=== PATIENT | female | born 1995 | race Caucasian/White ===

== ENCOUNTER 2017-01-30 16:02 | Emergency (ER) | payer OTHER ==
[~2017-01-30] VITALS: Ht 154.9 cm; Wt 59.6 kg
[2017-01-30 16:03] VITALS: BP 116/79; PULSE 76; TEMP 36.9; O2SAT 100; Ht 154.9 cm; Wt 59.6 kg
[2017-01-30] MEDS ORDERED: IBUP-1050 PO (16:29)
[2017-01-30] MEDS ORDERED: BCPILLS PO (16:29)
--- NOTE | 2017-01-30 16:31 | DIAGNOSTIC IMAGING REPORT ---
LEFT ANKLE MIN 3 VIEWS ROUTINE HISTORY: 21 years-old Female r/o fx left ankle, trama COMPARISON: None available TECHNIQUE: 3 views of the left ankle FINDINGS: Ankle mortise is well maintained and anatomically positioned. Talar dome is smooth without osteochondral defect. No acute fracture, dislocation or significant degenerative changes. There is mild soft tissue swelling about the ankle, greatest laterally. No large joint effusion or radiopaque foreign body. IMPRESSION: Mild soft tissue swelling without acute fracture or dislocation. The above report was generated using voice recognition software. It may contain grammatical, syntax or spelling errors. Electronically signed by: Raymond Galo M.D. 01/30/2017 4:30 PM Dictated Date/Time: 01/30/2017 4:27 PM
--- NOTE | 2017-02-01 11:14 | EMERGENCY ROOM VISIT NOTE ---
ED Visit Note First contact with patient: 16:06 Chief Complaint: I think I sprained my left ankle. History of Present Illness: Ms. Rangel is a 21-year-old female who ambulates into the ED complaining of left lateral ankle pain. Historically patient reports she had a ligamentous injury to her ankle when she was in high school. She reported it was a significant sprain but when she was followed up in orthopedics surgery was not recommended. Patient reports last evening she slipped while walking down steps and twisted her ankle. From her description of the injury appears to be an inversion injury. She reports since the fall she has been having worsening pain and swelling over the lateral aspect of the left ankle. She describes her pain as sharp and throbbing. She rates her discomfort 5/10. Her pain is nonradiating. Her pain worsens with plantar flexion, weightbearing, ambulation and palpation. She has not identified any alleviating factors related to the pain. She has not taken any medications for pain prior to arrival at the hospital. She denies any associated symptoms including hip pain, knee pain, foot pain, leg weakness/numbness/tingling. Review of Systems: As noted above in history of present illness. Past Medical History: As previously noted, asthma, GERD, migraine headaches. Current Medications: control. Allergies to Medications: Patient denies. Social History: Patient is currently employed; she feels safe in her home environment; she denies tobacco and alcohol use. Physical Examination: Vital Signs: Date Time Temp Pulse Resp B/P (MAP) Pulse Ox O2 Delivery O2 Flow Rate FiO2 01/30/17 16:03 36.9 76 18 116/79 100 GENERAL: 21-year-old female in mild distress due to pain, nontoxic-appearing, afebrile and hemodynamically stable. NEUROLOGICAL: Awake, alert and oriented to person, place and time. Answering questions appropriately and following commands. Normal gait. SKIN: Warm, dry and pink. No soft tissue trauma noted. LEFT LOWER EXTREMITY: No gross bony deformity. No tenderness in the hip, knee, lower leg or foot. Moderate tenderness over the lateral malleolus over the anterior and posterior talofibular ligaments with moderate swelling but no ecchymosis. No palpable bony deformity. No perceived ligamentous laxity. Distal pulses, sensations and capillary refill intact. ED Course: Patient is assessed as noted above. Patient's medication list was reviewed. Patient was offered pain medication and refused; she was given ice for pain and comfort. Left Ankle X-Rays: Were read by myself and the radiologist showing no acute fractures or dislocations. Patient was placed in a gel splint and on nonweightbearing crutches. Patient was educated about today's findings and instructed on her treatment plan ; she verbalizes understanding and agreement with this plan. Clinical Impression: Left ankle sprain. Disposition: Patient discharged home in stable condition; prior to departure she was reassessed and subjectively reported she was feeling slightly worse and rated her discomfort 6/10. Plan: Comfort measures including rest, ice, elevation, alternating ibuprofen and acetaminophen and gel splint and crutches were discussed with the patient. Patient was encouraged to follow-up with orthopedics if no better in 6-7 days. Patient was encouraged return the ED for worsening/uncontrolled pain, uncontrolled swelling, foot weakness/numbness/tingling or any new/concerning symptoms.
== END 2017-01-30 16:55 | disposition home or self-care (01) ==
LOC: C.EDB 16:04 → C.EDD 16:55
DX: S93.402A Sprain of unspecified ligament of left ankle, initial encounter (principal); X50.0XXA Overexertion from strenuous movement or load, initial encounter; J45.909 Unspecified asthma, uncomplicated; K21.9 Gastro-esophageal reflux disease without esophagitis; Z79.3 Long term (current) use of hormonal contraceptives

== ENCOUNTER 2017-02-03 09:26 | Emergency (ER) | payer OTHER ==
[~2017-02-03] VITALS: Ht 154.9 cm; Wt 59.8 kg
[~2017-02-03 09:26] MED LIST: BCPILLS PO; IBUP-1050 PO
[2017-02-03 09:33] VITALS: TEMP 36.6; Ht 154.9 cm; Wt 59.8 kg
--- NOTE | 2017-02-03 10:09 | EMERGENCY ROOM VISIT NOTE ---
History Report prepared by Ramona: July Zimmer Under the Supervision of: Dr. Elias Hernandez M.D. First contact with patient: 09:41 Chief Complaint: URINARY SYMPTOMS Stated Complaint: URINARY FREQUENCY, BURNING, UNCOMFORTABLE History of Present Illness The patient is a 21 year old female with no significant past medical history who presents to the ED with a cc of urinary symptoms beginning 4 days ago. She has had discomfort with urinating but denies any burning. She is also urinating more frequently than usual. She rates her discomfort as a 6/10 in severity. The patient has had a UTI in the past and states that she had burning with urination at that time and these symptoms feel different. She is concerned for STDs but denies any recent unprotected sex or new sexual partners. Negative fevers, chills, sore throat, cough, congestion, back pain, nausea, vomiting, abdominal pain, and abnormal vaginal discharge. She does take an OCP. LNMP was 3 weeks ago. Her vaccinations are up to date. Source of History: patient Onset: 4 days ago Position: other (urinary) Symptom Intensity: 6/10 Quality: other (discomfort) Timing: constant Associated Symptoms: No fevers, No chills, No sorethroat, No cough, No vomiting, No abdominal pain, No back pain Note: Pt denies abnormal vaginal discharge. Review of Systems See HPI for pertinent positives and negatives. A total of ten systems were reviewed and were otherwise negative. Past Medical & Surgical Medical Problems: (1) GERD (gastroesophageal reflux disease) (2) Kidney stones (3) Migraine Surgical Problems: (1) No history of previous surgery Family History FH: cancer FH: diabetes mellitus FH: heart disease FH: hypertension FH: kidney disease FH: seizures Social History Smoking Status: Never Smoker Alcohol Use: none Drug Use: none Marital Status: single Housing Status: lives with friends Occupation Status: employed Current/Historical Medications Scheduled Control Pills ( Control Pills), 1 TAB PO DAILY Cephalexin Monohydrate (Keflex), 500 MG PO BID Ondasetron Odt (Zofran Odt), 4 MG SL Q6H Scheduled PRN Ibuprofen (Advil), 400 MG PO Q6 PRN for Pain Allergies Coded Allergies: No Known Allergies (Unverified , 02/03/17) Physical Exam Vital Signs Date Time Temp Pulse Resp B/P (MAP) Pulse Ox O2 Delivery O2 Flow Rate FiO2 02/03/17 11:42 75 20 104/65 99 Room Air 02/03/17 09:33 36.6 88 16 107/70 94 Room Air Physical Exam GENERAL: Awake, alert, well-appearing, NAD HENT: Normocephalic, atraumatic. EYES: Normal conjunctiva. Sclera non-icteric. NECK: Supple. No nuchal rigidity. FROM. RESPIRATORY: CTAB, no rhonchi, wheezing, crackles CARDIAC: RRR, no MRG ABDOMEN: Soft, NTND, BS+ MSK: No chest wall TTP, no LE edema NEURO: GCS 15, CN 2-12 intact, moves all 4s on command SKIN: No rash or jaundice noted. Medical Decision & Procedures Laboratory Results Test 02/03/17 09:50 Urine Color YELLOW Urine Appearance CLEAR (CLEAR) Urine pH 5.0 (4.5-7.5) Urine Specific [place] 1.025 (1.000-1.030) Urine Protein NEG (NEG) Urine Glucose (UA) NEG (NEG) Urine Ketones NEG (NEG) Urine Occult Blood 2+ (NEG) Urine Nitrite NEG (NEG) Urine Bilirubin NEG (NEG) Urine Urobilinogen NEG (NEG) Urine Leukocyte Esterase MODERATE (NEG) Urine WBC (Auto) >30 /hpf (0-5) Urine RBC (Auto) 10-30 /hpf (0-4) Urine Hyaline Casts (Auto) 1-5 /lpf (0-5) Urine Epithelial Cells (Auto) 5-10 /lpf (0-5) Urine Bacteria (Auto) 2+ (NEG) Urine Test NEG (NEG) Laboratory results reviewed by me. Medications Administered Medications (Trade) Dose Ordered Sig/Isabel Route Start Time Stop Time Status Last Admin Dose Admin Ceftriaxone Sodium (Rocephin Im) 1,000 mg NOW STAT IM 02/03/17 11:03 02/03/17 11:04 DC 02/03/17 11:35 1,000 MG ED Course 0941: The patient was evaluated in room A11B. A complete history and physical exam was performed. 1103: Rocephin 1000 mg IM 1142: I reassessed the patient at this time. She is feeling better and resting comfortably. I discussed the results and treatment plan with the patient. I answered all pertaining questions that she had. She expressed understanding and verbalized agreement. The patient will be discharged home. Medical Decision Differential diagnoses includes UTI, STD, kidney stone. The patient is a 21 year old female with no significant past medical history who presents to the ED with a cc of urinary symptoms beginning 4 days ago. Patient was seen and evaluated at the bedside. Patient is complaining of some mild dysuria but no other symptoms. Patient did have a UA consistent with cystitis and hematuria. She has had h/o of prior UTI w/ similar symptoms although usually more pronounced than currently. Denies fevers or chills. Patient had no abdominal pain and had no nausea or vomiting. Patient also did not have any high risk factors concerning for possible STDs. Patient denied any recent change in sexual partners, unprotected sexual intercourse, or drug use. Patient was told that if she would like additional testing may be more appropriate for a clinic or PCP so that if she requires treatment she can return there for appropriate treatment. Patient was given strict follow-up for discharge, return precautions. Patient agreed with plan of care patient safely discharged home. Medication Reconcilliation Current Medication List: was personally reviewed by me Blood Pressure Screening Patient's blood pressure: Normal blood pressure Impression Primary Impression: Cystitis Scribe Attestation The scribe's documentation has been prepared under my direction and personally reviewed by me in its entirety. I confirm that the note above accurately reflects all work, treatment, procedures, and medical decision making performed by me. Departure Information Dispostion Home / Self-Care Prescriptions Ondasetron Odt (ZOFRAN ODT) 4 Mg Tab 4 MG SL Q6H for Nausea, #6 TAB Prov: Elias Hernandez M.D. 02/03/17 Cephalexin Monohydrate (Keflex) 500 Mg Cap 500 MG PO BID for urinary tract infection for 7 Days, #14 CAP Prov: Elias Hernandez M.D. 02/03/17 Referrals No Doctor, Assigned (PCP) Forms HOME CARE DOCUMENTATION FORM, IMPORTANT VISIT INFORMATION Patient Instructions Cystitis Interstitial, My [facility] Additional Instructions Please return to the emergency department if you have worsening or recurrent symptoms not amenable to at-home treatment. Please call for a follow-up appointment with her primary care physician. Please take your medications as prescribed. If you have other concerns and/or complaints please feel free to also call your primary care physician's office or return the ED for further evaluation, management, and treatment. School Instructions Return To School: 1 day
[2017-02-03 10:50] LABS: URINE APPEARANCE CLEAR (CLEAR); URINE BILIRUBIN NEG (NEG); URINE COLOR YELLOW; URINE NITRITE NEG (NEG); URINE SPECIFIC GRAVITY 1.025 (1.000-1.030); UROBILINOGEN NEG (NEG); ZZUR CULT IF INDIC CLEAN CATCH YES
[2017-02-03 11:02] LABS: MANUAL MICROSCOPIC REQUIRED? NO; REVIEW REQ? NO
[2017-02-03] MEDS ORDERED: CEFTRIAXONE SOD 350MG/ML 1 GM VIAL IM STA (11:03)
[2017-02-03] MEDS ORDERED: CEPH500C PO (11:33)
[2017-02-03] MEDS ORDERED: ONDA4TAB10 SL (11:33)
[2017-02-03 11:42] VITALS: BP 104/65; PULSE 75; O2SAT 99
--- NOTE | 2017-02-05 14:03 | Pharmacy Progress Note ---
ED Pharmacist Culture FollowUp Date of Service: Feb 05, 2017. Patient was sent home with a prescription for cephalexin 500mg BID X 7 days, which should cover the E. coli growing from the patient's urine culture.
== END 2017-02-03 11:54 | disposition home or self-care (01) ==
LOC: C.EDB 09:27 → C.EDA 11:54
DX: N30.80 Other cystitis without hematuria (principal); K21.9 Gastro-esophageal reflux disease without esophagitis; Z87.440 Personal history of urinary (tract) infections; Z80.9 Family history of malignant neoplasm, unspecified; Z83.3 Family history of diabetes mellitus; Z82.49 Family history of ischemic heart disease and other diseases of the circulatory system; Z84.1 Family history of disorders of kidney and ureter; Z82.0 Family history of epilepsy and other diseases of the nervous system

== ENCOUNTER 2017-02-19 10:42 | Emergency (ER) | payer OTHER ==
[~2017-02-19] VITALS: Ht 154.9 cm; Wt 59.2 kg
[~2017-02-19 10:42] MED LIST changes: +ONDA4TAB10 SL
[2017-02-19 10:52] VITALS: TEMP 36.7; Ht 154.9 cm; Wt 59.2 kg
--- NOTE | 2017-02-19 11:20 | EMERGENCY ROOM VISIT NOTE ---
History Report prepared by Ramona: Milka Ventura Under the Supervision of: Dr. Mc Hopkins M.D. First contact with patient: 11:14 Chief Complaint: CONGESTION Stated Complaint: RUNNY/STUFFY NOSE, COUGH, CHEST AND THROAT PAIN Nursing Triage Summary: Pt states she's been sick for a a couple weeks, started as a cold C/O Runny nose Cough, productive, green Sore throat Chest pain when she coughs. Hot and cold. History of Present Illness The patient is a 21 year old female who presents to the Emergency Room with complaints of a constant sore throat beginning 2 weeks ago. The patient reports that she has been short of breath, had a runny nose, and has had headaches. The patient also reports having a productive cough and the chills. She states that her roommate has been sick but not to this degree. The patient reports no other medical problems. Source of History: patient Onset: 2 weeks ago Position: throat Quality: other (sore) Timing: constant Associated Symptoms: + chills, + headache, + cough (productive), + SOB Review of Systems See HPI for pertinent positives & negatives. A total of 10 systems reviewed and were otherwise negative. Past Medical & Surgical Medical Problems: (1) GERD (gastroesophageal reflux disease) (2) Kidney stones (3) Migraine Surgical Problems: (1) No history of previous surgery Family History FH: cancer FH: diabetes mellitus FH: heart disease FH: hypertension FH: kidney disease FH: seizures Social History Smoking Status: Never Smoker Alcohol Use: none Drug Use: none Marital Status: single Housing Status: lives with friends Occupation Status: employed Current/Historical Medications Scheduled Albuterol Hfa (Ventolin Hfa), 2-4 PUFFS INH Q6H Amoxicillin & Pot Clavulanate (Augmentin 875-125 mg), 875 MG PO BID Control Pills ( Control Pills), 1 TAB PO DAILY Allergies Coded Allergies: No Known Allergies (Unverified , 02/03/17) Physical Exam Vital Signs Date Time Temp Pulse Resp B/P (MAP) Pulse Ox O2 Delivery O2 Flow Rate FiO2 02/19/17 11:35 80 18 110/71 99 Room Air 02/19/17 10:52 36.7 90 16 117/78 98 Room Air 02/19/17 10:52 98 Room Air Physical Exam GENERAL: Patient is in no acute distress. HEENT: No acute trauma, normocephalic atraumatic, mucous membranes moist, moderate nasal congestion, no scleral icterus. No throat erythema or exudate. NECK: No stridor, no adenopathy, no meningismus, trachea is midline. LUNGS: Clear to auscultation bilaterally, no wheeze, no rhonchi, breath sounds equal. HEART: Without murmurs gallops or rubs, regular rate and rhythm. ABDOMEN: Soft, nontender, bowel sounds positive, no hernias, no peritonitis. EXTREMITIES: No cyanosis or edema, full range of motion of all the joints without pain or difficulty, no signs for acute trauma. NEUROLOGIC: Oriented x 3, no acute motor or sensory deficits, no focal weakness. SKIN: No rash, no jaundice, no diaphoresis. Medical Decision & Procedures Medications Administered Medications (Trade) Dose Ordered Sig/Isabel Route Start Time Stop Time Status Last Admin Dose Admin Albuterol (Ventolin Hfa Inhaler) 3 puffs NOW ONCE INH 02/19/17 11:30 02/19/17 11:31 DC 02/19/17 11:34 3 PUFFS Amoxicillin/ Clavulanate Potassium (Augmentin Tab) 875 mg ONE ONCE PO 02/19/17 11:30 02/19/17 11:31 DC 02/19/17 11:34 875 MG ED Course 1110: The patient was evaluated in room B9. A complete history and physical exam was performed. 1130: Ordered Augmentin Tab 875 mg PO, Albuterol 3 puffs INH. 1145: Reevaluated the patient. Discussed results and discharge instructions: She verbalized understanding and agreement. The patient is ready for discharge. Medical Decision The patient is a 21 year old female who presents to the ED with complaints of sore throat. Differential diagnoses considered include URI, pharyngitis, sinusitis, bronchitis, and pneumonia. The patient presents with 2 weeks of stuffy nose, cough and congestion. On exam , there is no pharyngitis. She was not toxic or febrile. Her lungs were clear without wheezing. The patient has a sinusitis, possibly an early bronchitis. I do think she requires antibiotic therapy. She was given oral Augmentin. I will prescribe albuterol for bronchospasm. A dose of albuterol was given here. The patient can return if not improving or if things are worsening. Medication Reconcilliation Current Medication List: was personally reviewed by me Blood Pressure Screening Patient's blood pressure: Normal blood pressure Impression Primary Impression: Sinusitis Additional Impression: Cough Scribe Attestation The scribe's documentation has been prepared under my direction and personally reviewed by me in its entirety. I confirm that the note above accurately reflects all work, treatment, procedures, and medical decision making performed by me. Departure Information Dispostion Home / Self-Care Prescriptions Albuterol Hfa (VENTOLIN HFA) 200 Puffs/50354 Mcg Aers 2-4 PUFFS INH Q6H, #1 INHALER Prov: Mc Hopkins M.D. 02/19/17 Amoxicillin & Pot Clavulanate (Augmentin 875-125 mg) 1 Tab Tab 875 MG PO BID for 10 Days, #20 TAB Prov: Mc Hopkins M.D. 02/19/17 Referrals No Doctor, Assigned (PCP) Forms HOME CARE DOCUMENTATION FORM, IMPORTANT VISIT INFORMATION Patient Instructions My [facility] Additional Instructions albuterol 2-4 puffs every 6 hours for the cough fluids rest augmenting 2x per day for 10 days return if worsening lungs were clear today Problem Qualifiers
[2017-02-19] MEDS ORDERED: AMOXICILLIN/CLAVULANATE TAB 875 MG TAB PO ONE (11:30)
[2017-02-19] MEDS ORDERED: ALBUTEROL HFA 8 GM INHALER INH ONE (11:30)
[2017-02-19 11:35] VITALS: BP 110/71; PULSE 80; O2SAT 99
[2017-02-19] MEDS ORDERED: AMOX875T PO (11:48)
[2017-02-19] MEDS ORDERED: VNTHFA/IN INH (11:48)
== END 2017-02-19 11:56 | disposition home or self-care (01) ==
LOC: C.EDB 10:44
DX: J32.9 Chronic sinusitis, unspecified (principal); R05 Cough; Z83.3 Family history of diabetes mellitus; Z82.49 Family history of ischemic heart disease and other diseases of the circulatory system; Z82.0 Family history of epilepsy and other diseases of the nervous system

== ENCOUNTER 2017-05-03 09:04 | Emergency (ER) | payer OTHER ==
[~2017-05-03] VITALS: Ht 154.9 cm; Wt 60.1 kg
[~2017-05-03 09:04] MED LIST changes: -IBUP-1050 PO; -ONDA4TAB10 SL; +VNTHFA/IN INH
[2017-05-03 09:10] VITALS: BP 118/79; PULSE 65; TEMP 36.9; O2SAT 99; Ht 154.9 cm; Wt 60.1 kg
[2017-05-03] MEDS ORDERED: CEPHALEXIN MONOHYDRATE 250 MG CAP PO STA (09:14)
[2017-05-03] MEDS ORDERED: CEPHALEXIN 500MG HOME PACK 1 EA BTL PO ONE (09:15)
--- NOTE | 2017-05-03 09:18 | EMERGENCY ROOM VISIT NOTE ---
History Report prepared by Ramona: Ernesto Clements Under the Supervision of: Dr. Samson Goode M.D. First contact with patient: 09:10 Chief Complaint: URINARY SYMPTOMS Stated Complaint: BURNING WHEN URINATING History of Present Illness The patient is a 21 year old female who presents to the Emergency Room with complaints of persistent urinary symptoms that started this morning. She says that she has a history of UTI's, and feels like she is having one again. The patient states that she has burning with urination and increased urinary frequency. She denies any fevers or cold symptoms. She is a [employer] student. Source of History: patient Onset: This morning Position: other (global - urinary symptoms) Quality: other (feels like UTI - urinary burning, increased frequency) Timing: other (persistent) Associated Symptoms: No fevers Note: Associated symptoms: Denies cold symptoms. Review of Systems See HPI for pertinent positives & negatives. A total of 10 systems reviewed and were otherwise negative. Past Medical & Surgical Medical Problems: (1) GERD (gastroesophageal reflux disease) (2) Kidney stones (3) Migraine Surgical Problems: (1) No history of previous surgery Family History FH: cancer FH: diabetes mellitus FH: heart disease FH: hypertension FH: kidney disease FH: seizures Social History Smoking Status: Never Smoker Alcohol Use: none Drug Use: none Marital Status: single Housing Status: lives with friends Occupation Status: [employer] student Current/Historical Medications Scheduled Albuterol Hfa (Ventolin Hfa), 2-4 PUFFS INH Q6H Control Pills ( Control Pills), 1 TAB PO DAILY Cephalexin Monohydrate (Keflex), 1 CAP PO BID Allergies Coded Allergies: No Known Allergies (Unverified , 05/03/17) Physical Exam Vital Signs Date Time Temp Pulse Resp B/P (MAP) Pulse Ox O2 Delivery O2 Flow Rate FiO2 05/03/17 09:10 36.9 65 18 118/79 99 Room Air Physical Exam GENERAL: Patient is a healthy-appearing well-nourished 21 year old female. HEAD: Normocephalic atraumatic EYES: Ocular movements intact pupils equal and react to light OROPHARYNX mucous membranes are moist no exudates present no erythema or edema present NECK: Supple no nuchal rigidity CHEST: Good equal expansion LUNGS: Clear and equal to auscultation CARDIAC: Normal S1 and S2 ABDOMEN: Soft nontender no guarding BACK: No CVA tenderness EXTREMITIES: No pain upon palpation normal muscle strength in all groups no clubbing cyanosis or edema NEURO: Patient is following commands and answering questions appropriately. Alert and oriented x3 Cranial Nerves 2-12 grossly intact Medical Decision & Procedures Laboratory Results Test 05/03/17 09:25 Medications Administered Medications (Trade) Dose Ordered Sig/Isabel Route Start Time Stop Time Status Last Admin Dose Admin Cephalexin Monohydrate (Keflex 500MG Home Pack) 1 homepack NOW ONCE PO 05/03/17 09:15 05/03/17 09:16 DC 05/03/17 09:35 1 HOMEPACK Cephalexin Monohydrate (Keflex Cap) 500 mg NOW STAT PO 05/03/17 09:14 05/03/17 09:15 DC 05/03/17 09:35 500 MG ED Course 0913: Past medical records reviewed. The patient was evaluated in room B6. A complete history and physical examination was performed. I discussed treatment plan with the patient. She verbalizes agreement and understanding. The patient is ready for discharge. 0914: Ordered Keflex Cap 500 mg PO. 0915: Ordered Keflex 500MG Home Pack 1 homepack PO. Medical Decision Differential diagnosis: Etiologies such as renal colic, appendicitis, diverticulitis, mesenteric ischemia, aortic pathology, infections, inflammatory bowel disease, PUD, biliary pathology, UTI, as well as others were entertained. This is a 21-year-old female who presents emergency department complaining of urinary symptoms. The patient reports that she only needs an antibiotic. She is afebrile and is not complaining of any pain only frequency of going. She reports that she was placed on Keflex and that this worked for her several months ago. For this reason the patient was placed on Keflex. She will return if her pain is out of control or she develops fevers. Medication Reconcilliation Current Medication List: was personally reviewed by me Blood Pressure Screening Patient's blood pressure: Normal blood pressure Impression Primary Impression: Urinary tract infection Scribe Attestation The scribe's documentation has been prepared under my direction and personally reviewed by me in its entirety. I confirm that the note above accurately reflects all work, treatment, procedures, and medical decision making performed by me. Departure Information Dispostion Home / Self-Care Prescriptions Cephalexin Monohydrate (Keflex) 500 Mg Cap 1 CAP PO BID for 7 Days, #14 CAP Prov: Samson Goode MD 05/03/17 Referrals No Doctor, Assigned (PCP) Patient Instructions ED UTI Cystitis Female, My [facility] Additional Instructions Culture results are usually available in approx 48 hours You have been examined and treated today on an emergency basis only. This is not a substitute for, or an effort to provide, complete comprehensive medical care. It is impossible to recognize and treat all injuries or illnesses in a single emergency department visit. It is therefore important that you follow up closely with your PCP. Call as soon as possible for an appointment. Thank you for your time and consideration. I look forward to speaking with you again soon. Please don't hesitate to call us if you have any questions. Problem Qualifiers Primary Impression: Urinary tract infection Urinary tract infection type: site unspecified Hematuria presence: without hematuria Qualified Codes: N39.0 - Urinary tract infection, site not specified
[2017-05-03] MEDS ORDERED: CEPH500C PO (09:19)
[2017-05-03 09:48] LABS: URINE APPEARANCE CLOUDY (CLEAR); URINE BILIRUBIN NEG (NEG); URINE COLOR YELLOW; URINE EPITHELIAL CELL AUTO >30 /lpf (0-5); URINE NITRITE NEG (NEG); URINE SPECIFIC GRAVITY 1.031 (1.000-1.030); UROBILINOGEN NEG (NEG); ZZUR CULT IF INDIC CLEAN CATCH YES
[2017-05-03 10:00] LABS: MANUAL MICROSCOPIC REQUIRED? NO; REVIEW REQ? YES
[2017-05-03 10:22] LABS: URINE MUCUS PRESENT (NONE PRSENT)
== END 2017-05-03 09:38 | disposition home or self-care (01) ==
LOC: C.EDB 09:07
DX: N39.0 Urinary tract infection, site not specified (principal); Z87.440 Personal history of urinary (tract) infections; Z87.442 Personal history of urinary calculi; Z83.3 Family history of diabetes mellitus; Z82.49 Family history of ischemic heart disease and other diseases of the circulatory system; Z82.0 Family history of epilepsy and other diseases of the nervous system

== ENCOUNTER 2017-08-01 15:33 | Emergency (ER) | payer OTHER ==
[~2017-08-01] VITALS: Ht 154.9 cm; Wt 62.5 kg
[2017-08-01 15:37] VITALS: Ht 154.9 cm; Wt 62.5 kg
[2017-08-01] MEDS ORDERED: ALBUTEROL HFA 8 GM INHALER INH STA (15:49)
[2017-08-01] MEDS ORDERED: METH4PAK PO (15:51)
[2017-08-01] MEDS ORDERED: AZITTAB PO (15:51)
--- NOTE | 2017-08-01 16:05 | EMERGENCY ROOM VISIT NOTE ---
History First contact with patient: 15:39 Chief Complaint: COUGH Stated Complaint: COUGHING, CHEST PAIN, STUFFY NOSE Nursing Triage Summary: Patient c/o chest congestion, pain when she coughs, sinus congestion and headache x 1 week. denies fever History of Present Illness The patient is a 21 year old female who presents to the Emergency Room with complaints of progressively worsening cough, sinus congestion and headache. The patient reports that she had a cold approximately 8 days ago. Her symptoms were initially approving midweek, but have now been worsening over the past 3 days. The patient has been exhibiting chills. She has not checked her temperature. She has also had occasional wheezing. The patient reports that childhood history of asthma. She cannot recall the last time she had to use an albuterol inhaler, and does not have one at home. She denies any recent foreign travel or sick contacts. She rates her overall discomfort a 4 out of 10. Review of Systems 10 system review was performed and was negative except for pertinent positives and negatives as indicated in history of present illness Past Medical/Surgical History Medical Problems: (1) GERD (gastroesophageal reflux disease) (2) Kidney stones (3) Migraine Surgical Problems: (1) No history of previous surgery Family History FH: cancer FH: diabetes mellitus FH: heart disease FH: hypertension FH: kidney disease FH: seizures Social History Smoking Status: Never Smoker Alcohol Use: none Drug Use: none Marital Status: single Housing Status: lives with friends Occupation Status: [employer] student Current/Historical Medications Scheduled Albuterol Hfa (Ventolin Hfa), 2-4 PUFFS INH Q6H Azithromycin (Zithromax Z-Danie), 0 PO UD Control Pills ( Control Pills), 1 TAB PO DAILY Methylprednisolone (Medrol Dosepak), 0 PO DAILY Physical Exam Vital Signs Date Time Temp Pulse Resp B/P (MAP) Pulse Ox O2 Delivery O2 Flow Rate FiO2 08/01/17 15:37 37.3 110 18 120/75 96 Room Air Physical Exam CONSTITUTIONAL: Healthy and well nourished. Alert and oriented X 3 with positive affect. She does not appear in any acute distress. HEENT: Normocephalic, atraumatic. Pupils equal, round and reactive. Ears and nares are clear without purulent drainage or TM bulging. No scleral icterus or conjunctival injection. LYMPHATICS: No cervical chain adenopathy. NECK: Full active range of motion without discomfort. No nuchal rigidity or meningeal signs. RESPIRATORY: Clear to auscultation bilaterally with no wheezing, crackles, rhonchi or stridor. CARDIOVASCULAR: Regular rate and rhythm with no murmurs, rubs or gallops. INTEGUMENTARY: No rash or other significant dermatologic conditions noted. NEUROLOGIC: No focal neurologic deficits noted. Medical Decision & Procedures ED Course Patient history and physical exam were performed. Nurse's notes were reviewed. Vital signs were reviewed. The patient is currently afebrile. O2 saturation is 96% on room air. She was slightly tachycardic in triage. She is normotensive. The patient does not appear in any acute respiratory distress. Lung sounds are clear. At this point, the patient will be treated with a Z-Danie and Medrol Dosepak for probable acute bacterial bronchitis. The patient was also dispensed a Ventolin metered-dose inhaler with AeroChamber, and instructions for its use. She was encouraged to follow-up with her PCP over spring if symptoms are not improving within the next week. The patient was happy with plan of care, voiced understanding of all discharge instructions , and denied any significant discomfort at the time of discharge. Medical Decision Medication Reconcilliation Current Medication List: was personally reviewed by me Blood Pressure Screening Patient's blood pressure: Normal blood pressure Impression Primary Impression: Acute bronchitis Additional Impression: History of asthma Departure Information Dispostion Home / Self-Care Prescriptions Methylprednisolone (MEDROL DOSEPAK) 4 Mg Danie 0 PO DAILY, #1 PKT Prov: Austin Lovelace PA 08/01/17 Azithromycin (ZITHROMAX Z-DANIE) 250 Mg Tab 0 PO UD, #1 PKT 2 TABS DAY 1, THEN 1 TAB DAILY FOR 4 DAYS Prov: Austin Lovelace PA 08/01/17 Forms HOME CARE DOCUMENTATION FORM, IMPORTANT VISIT INFORMATION Patient Instructions Bronchitis Acute, My [facility] [place] Neocrafts Additional Instructions Complete all Zithromax antibiotics and Medrol dosepak as prescribed. Administer albuterol 2 puffs every 4 hours. You may take additional OTC medications for additional symptomatic relief ( Mucinex, Robitussin-DM). Ibuprofen or Tylenol as needed for pain/fever. Follow-up with family doctor if symptoms are not improving within the next week. Problem Qualifiers Primary Impression: Acute bronchitis Bronchitis organism: unspecified organism Qualified Codes: J20.9 - Acute bronchitis, unspecified
[2017-08-01 16:09] VITALS: BP 120/75; PULSE 110; TEMP 37.3; O2SAT 96
== END 2017-08-01 16:10 | disposition home or self-care (01) ==
LOC: C.EDB 15:34 → C.EDC 16:10
DX: J20.9 Acute bronchitis, unspecified (principal); Z87.09 Personal history of other diseases of the respiratory system; R00.0 Tachycardia, unspecified; Z79.3 Long term (current) use of hormonal contraceptives